=== PATIENT | female | born 1985 | race Caucasian/White ===

== ENCOUNTER 2019-07-29 14:45 | Outpatient (CLI) | payer MEDICAID ==
[~2019-07-29 14:45] MED LIST: LORA-269 PO; NO HOME MEDS
== END 2019-07-29 23:59 | disposition home or self-care (01) ==
LOC: LAB 14:45
PROVIDERS: ATTEND Registered Nurse
DX: Z34.00 Encounter for supervision of normal first pregnancy, unspecified trimester (principal); Z87.891 Personal history of nicotine dependence
CPT/HCPCS: 36415; 84702

== ENCOUNTER 2019-08-03 14:36 | Outpatient (CLI) | payer MEDICAID | END 2019-08-03 23:59 | disposition home or self-care (01) | LOC: LAB 14:36 | PROVIDERS: ATTEND Registered Nurse | DX: Z34.00 Encounter for supervision of normal first pregnancy, unspecified trimester (principal); Z87.891 Personal history of nicotine dependence | CPT/HCPCS: 36415; 84702 ==

== ENCOUNTER 2019-08-12 14:13 | Outpatient (CLI) | payer MEDICAID | END 2019-08-12 23:59 | disposition home or self-care (01) | LOC: LAB 14:13 | PROVIDERS: ATTEND Family Medicine | DX: Z34.00 Encounter for supervision of normal first pregnancy, unspecified trimester (principal) | CPT/HCPCS: 36415; 84702 ==

== ENCOUNTER 2019-08-16 16:57 | Outpatient (CLI) | payer MEDICAID | END 2019-08-16 23:59 | disposition home or self-care (01) | LOC: LAB 16:57 | PROVIDERS: ATTEND Family Medicine | DX: Z34.00 Encounter for supervision of normal first pregnancy, unspecified trimester (principal); Z3A.00 Weeks of gestation of pregnancy not specified | CPT/HCPCS: 36415; 84702 ==

== ENCOUNTER 2019-11-20 19:48 | Emergency (ER) | payer MEDICAID ==
[~2019-11-20] VITALS: Ht 180.3 cm; Wt 71.0 kg
[2019-11-20] MEDS ORDERED: iohexol 300mg/ml 100ml inj. ONE (23:24)
[2019-11-21 00:10] VITALS: BP 106/71
[2019-11-21] MEDS ORDERED: CEPH250T PO (00:22)
[2019-11-21] MEDS ORDERED: NAPR-56 PO (00:23)
== END 2019-11-21 00:34 | disposition home or self-care (01) ==
LOC: ER 19:49
DX: N99.842 Postprocedural seroma of a genitourinary system organ or structure following a genitourinary system procedure (principal); E03.9 Hypothyroidism, unspecified; Z90.710 Acquired absence of both cervix and uterus; Z88.2 Allergy status to sulfonamides; Z88.8 Allergy status to other drugs, medicaments and biological substances; Z79.899 Other long term (current) drug therapy; Y65.8 Other specified misadventures during surgical and medical care
CPT/HCPCS: 72193; 99284; Q9967

== ENCOUNTER 2023-10-07 11:06 | Emergency (ER) | payer MEDICAID ==
[~2023-10-07] VITALS: Ht 177.8 cm; Wt 66.6 kg
[2023-10-07 12:03] LABS: BILIRUBIN,URINE NEGATIVE (Neg); CLARITY,URINE CLOUDY (Clear); COLOR,URINE YELLOW (Yellow); GLUCOSE, URINE NEGATIVE (Neg); KETONES,URINE NEGATIVE (Neg); LEUKOCYTE ESTERASE ,URINE NEGATIVE (Neg); NITRITES, URINE NEGATIVE (Neg); OCCULT BLOOD,URINE SMALL (Neg); PH,URINE 5.5 (4.8-8.0); PROTEIN,URINE TRACE mg/dl (Neg); UROBILINOGEN,URINE 0.2 E.U/dL (0.2-1.0)
[2023-10-07 12:10] LABS: ALANINE AMINOTRANSFERASE 18 U/L (12-78); ALBUMIN 3.8 G/DL (3.4-5.0); ALBUMIN/GLOBULIN RATIO 1.4 (1.1-1.5); ALKALINE PHOSPHATASE 42 IU/L (46-116); AMYLASE 67 U/L (25-115); ANION GAP 9 (8-16); ASPARTATE AMINO TRANSFERASE 15 U/L (10-37); BLOOD UREA NITROGEN 23 MG/DL (7-18); BUN/CREATININE RATIO 30.3 (10.0-20.0); CALCIUM 8.6 MG/DL (8.5-10.1); CHLORIDE 102 MMOL/L (99-107); CREATININE 0.76 MG/DL (0.40-0.90); GLUCOSE 93 MG/DL (70-104); LIPASE 30 U/L (16-77); POTASSIUM 3.6 MMOL/L (3.5-5.1); SODIUM 138 MMOL/L (135-145); TOTAL CARBON DIOXIDE 26.7 MMOL/L (24-32); TOTAL PROTEIN 6.6 G/DL (6.4-8.2); eCRCL 104 ML/MIN; eGFR 85 ML/MIN
[2023-10-07 12:11] LABS: BASOPHILS % (AUTO) 0.4 % (0-1); EOSINOPHILS # (AUTO) 0.1 X10'3 (0-0.9); EOSINOPHILS % (AUTO) 1.5 % (0-6); HEMATOCRIT 41.4 % (35.0-45.0); LYMPHOCYTES # (AUTO) 0.9 X10'3 (1.1-4.8); LYMPHOCYTES % (AUTO) 19.2 % (21-51); MEAN CORPUSCULAR HEMOGLOBIN 31.5 PG (27.0-31.0); MEAN CORPUSCULAR HGB CONC 33.7 g/dL (33.0-36.5); MEAN CORPUSCULAR VOLUME 93.3 FL (78-98); MEAN PLATELET VOLUME 10.7 FL (7.4-10.4); MONOCYTES # (AUTO) 0.3 X10'3 (0-0.9); MONOCYTES % (AUTO) 6.7 % (2-12); NEUTROPHILS # (AUTO) 3.3 X10'3 (1.8-7.7); NEUTROPHILS % (AUTO) 72.2 % (42-75); PLATELET COUNT 159 X10'3 (140-440); RED BLOOD COUNT 4.44 X10'6 (4.20-5.60); RED CELL DISTRIBUTION WIDTH 12.5 % (11.5-14.5); WHITE BLOOD COUNT 4.6 X10'3 (4.5-11.0)
[2023-10-07] MEDS ORDERED: iohexol 300mg/ml 100ml inj. ONE (12:13)
[2023-10-07 12:14] LABS: UA COLLECTION TYPE CLN CATCH MIDSTREAM
[2023-10-07 12:20] LABS: MUCUS STRANDS MANY /LPF (Neg); SQUAMOUS EPITHELIAL CELL,UR MANY /LPF (FEW)
[2023-10-07 12:21] LABS: BACTERIA,URINE 1+ /HPF (Neg); RBC,URINE 20-50 /HPF (0-2); WBC,URINE 0-4 /HPF (0-4)
[2023-10-07] MEDS ORDERED: normal saline 1000ML IV soln IVB ONE (13:35)
[2023-10-07] MEDS ORDERED: ondansetron/PF 4mg/2ml inj IV ONE (13:35)
[2023-10-07] MEDS ORDERED: ketorolac trometh. 30mg/ml inj. IV ONE (13:35)
--- NOTE | 2023-10-07 13:56 | NUR ---
Ultrasound with patient at bedside.
[2023-10-07 15:54] VITALS: BP 118/72; PULSE 60; RESP 18; TEMP 97.7; O2SAT 98
== END 2023-10-07 16:03 | disposition home or self-care (01) ==
LOC: ER 11:06
DX: K59.00 Constipation, unspecified (principal); E86.0 Dehydration
CPT/HCPCS: 36415; 74177; 76700; 80053; 81001; 82150; 83690; 85025; 96361; 96374; 96375; 99285; J1885; J2405; J3490; J7030; Q9967

== ENCOUNTER 2025-08-25 14:11 | Emergency (ER) | payer MEDICAID ==
[~2025-08-25] VITALS: Ht 177.8 cm; Wt 68.2 kg
--- NOTE | 2025-08-25 14:39 | Physician Documentation ---
History of Present Illness Chief Complaint: Abdominal Pain Stated Complaint: ABD PAINS Primary Medical Doctor: [facility] Patient is a 40-year-old female that presents to the emergency department for evaluation of worsening of her abdominal hernias. Patient reports he has a significant history of umbilical hernias and repairs x2. Patient reports that she has recently been working out more. Yesterday she coughed and felt a pop in her abdomen today she is able to observe a visual pouch in the upper left quadrant of her abdomen with significant pain. Denies any other significant past medical history or any other symptoms at this time. took over care of pt @ 1429 Patient states that she has has been regurgitating food since she felt a protrusion in her left upper abdominal area. Areas tender but less notable than when it 1st appeared. Pain with coughing and patient has a history of constipation Day of Onset: Aug 25, 2025 Medication Reconciliation Allergies: Coded Allergies: Sulfa (Sulfonamide Antibiotics) (Verified Allergy, Severe, 02/18/16) metronidazole (Verified Allergy, Severe, 02/18/16) nitrofurantoin (Unverified Allergy, Mild, 10/07/23) Scheduled Lorazepam (Ativan), 1 TAB PO Q12H Omeprazole (Prilosec), 1 CAP PO DAILY Miscellaneous Medications Home Med List (No Home Medications), 1, (Reported) Past Medical History Past Medical History: Inflammatory Bowel Dz, Hernia, Graves' Disease, Hyperthyroidism, C-Diff Past Surgical History: hysterectomy Alcohol Use: None Drug Use: none Lives In: Home Occupation: employed Review of Systems All Other Systems at this time: Reviewed and Negative ROS As stated above in the HPI, otherwise all systems are reviewed and negative. Physical Exam Vital Signs: Temperature: 98.2, Heart Rate: 75, Respiratory Rate: 15, BP: 144/87, Pulse Oximetry: 100, Weight: 68.180 Oxygen Flow Rate: 0 Physical Exam General: Alert, no apparent distress. Gastrointestinal: Soft, tender left upper quadrant nondistended. Bowels sounds present. 4 x 7 cm nildly raised area, tender Extremities: Normal range of motion, no deformity. Neurologic: Oriented x4. Psychiatric: Normal mood and affect. Skin: Normal color, warm and dry. No edema, no ecchymosis. Progress Results/Orders Results/Orders Orders - ANGELES,EDOUARD A STENCILER Urinalysis, Cult If Indicated (08/25/25 14:35) Hcg, Ur Ql (08/25/25 14:35) Cbc/Diff (08/25/25 14:35) BMP (08/25/25 14:35) Lipase (08/25/25 14:35) CMP (08/25/25 14:35) Ct Abdomen Pelvis (08/25/25 14:35) Vital Signs 08/25/25 14:24 Temp 98.2 Pulse 75 Resp 15 B/P (MAP) 144/87 Pulse Ox 100 O2 Flow Rate 0 Medical Decision Making Findings Upon re-evaluation I discussed the patient's nonemergent CT findings indicating duodenal inflammation she then reported to me that she does have a history of IBS.. She was surprised to hear that she does not have a hernia. He then went on to indicate that maybe her symptoms could be related to abdominal cramps that she experienced during the initial incident. He is tender to the exterior and there does not appear to be a mobile reducible mass At this time I am going to treat her for muscle strain and possible gastritis secondary to previously diagnosed IBS Differential Dx:Considerations: Include: AAA, -Complete, - Incomplete, -Inevitable, -Missed, -Threatened, Abruptio placentae, Angina/AR, Aortic dissection, Appendicitis, Bowel obstruction, Cholangitis, Cholelithasis, Constipation, Diverticular disease, Esophageal rupture, Esophagitis, Gastritis/PUD, Gastroenteritis, GI hemorrhage, Hernia, Hepatitis, Inflammatory BD, Ischemic bowel, Ovarian cyst/torsion, Pancreatitis, PID, Porphyria, Trauma, intraabdominal, Urinary obstruction, Urinary tract infection, Urolithiasis, Other Departure Disposition: 01 HOME / SELF CARE / HOMELESS Impression: Primary Impression: Abdominal pain Additional Impression: Intercostal muscle strain Discharge Instructions: Gastritis, Adult, Muscle Cramps and Spasms Referrals: NO PRIMARY CARE PROVIDER (PCP) Prescriptions Omeprazole (Prilosec) 40 Mg Capsule 1 CAP PO DAILY for 30 Days, #30 CAP Prov: CAL LINDA DIESEL RET[employer]IT INSTALLER 08/25/25 Education Educated: Patient Educated regarding: diagnosis Signature Scribe Signature: f Attestation: Scribed for Cal Linda Sales Training Representative by Cal Ceballos NP . 08/25/25 15:30 EDOUARD REYNOSO STENCILER Aug 25, 2025 14:39 CAL LINDA NP Aug 25, 2025 15:30
[2025-08-25 15:10] LABS: MEAN PLATELET VOLUME 10.5 FL (7.4-10.4); RED CELL DISTRIBUTION WIDTH 13.3 % (11.5-14.5)
[2025-08-25 15:24] LABS: CREATININE 0.83 MG/DL (0.40-0.90); TOTAL CARBON DIOXIDE 34.5 MMOL/L (24-32); eCRCL 96 ML/MIN; eGFR 76 ML/MIN
[2025-08-25 15:57] LABS: LEUKOCYTE ESTERASE ,URINE NEGATIVE (Neg); NITRITES, URINE NEGATIVE (Neg); OCCULT BLOOD,URINE NEGATIVE (Neg); URINE HCG NEGATIVE (NEG)
[2025-08-25 16:07] LABS: UA COLLECTION TYPE CLN CATCH MIDSTREAM
[2025-08-25 16:17] LABS: SQUAMOUS EPITHELIAL CELL,UR FEW /LPF (FEW)
[2025-08-25] MEDS ORDERED: iohexol 300mg/ml 100ml inj. ONE (16:17)
--- NOTE | 2025-08-25 17:13 | RADIOLOGY REPORT ---
Exam: CT CT ABDOMEN PELVIS W/ IV CONTRAST History: R/O hernia Comparison Study: CT CT ABDOMEN PELVIS on DOS: 10/07/23 TECHNIQUE: Multidetector CT of the abdomen and pelvis with IV contrast. Axial, coronal and sagittal multiplanar reformats were obtained from the axial data set by the technologist. Radiation Dose Information: CT Dose: CTDI volume is 11.88 mGy. Dose-length product is 173.3 mGy*cm FINDINGS: Bibasilar atelectasis. Partially visualized heart is normal in size. Trace pericardial effusion. 7 mm enhancing hepatic lesion. Liver, spleen, gallbladder, pancreas and adrenal glands unremarkable. Dilatation of the common bile duct up to 0.9 cm with minimal intrahepatic biliary ductal dilatation; unchanged from prior imaging. Mild bilateral pelviectasis. Otherwise, kidneys, ureters and urinary bladder unremarkable. Uterus is not well evaluated. Mild gastric wall thickening. Mild wall thickening of proximal duodenum. Otherwise, the Small bowel loops are unremarkable. Appendix is unremarkable. Decompression of the rectum and sigmoid. Otherwise, Moderate to large amount of fecal material within the remainder of the colon. No evidence of aortic aneurysm or dissection. No significant lymphadenopathy. Minimal body wall edema. No evidence of acute osseous abnormalities. IMPRESSION: Gastric wall thickening with mild wall thickening of the proximal duodenum. Correlate for gastro duodenitis. Nonspecific 7 mm enhancing hepatic lesion. Hepatic protocol CT/ MRI should be considered for further evaluation. Unchanged additional common bile duct up to 0.9 cm with minimal intrahepatic biliary ductal dilatation. No hernia is visualized.
[2025-08-25] MEDS ORDERED: OMEP40CA21 PO (17:27)
[2025-08-25] MEDS: ketorolac trometh 30MG/ML vial 30 MG/ML VIAL IM ONE (17:38)
[2025-08-25] MEDS: mag hydrox/Alum hydrox/simeth 30ml oral suspension PO ONE (17:38)
[2025-08-25] MEDS: LIDOcaine 2% Viscous 15ml cup MM PRN (17:39)
[2025-08-25 17:41] VITALS: BP 114/72; PULSE 64; RESP 18; TEMP 98.2; O2SAT 100
== END 2025-08-25 17:48 | disposition home or self-care (01) ==
LOC: ER 14:13
DX: S29.011A Strain of muscle and tendon of front wall of thorax, initial encounter (principal); R10.12 Left upper quadrant pain; R05.9 Cough, unspecified; Z88.1 Allergy status to other antibiotic agents; Z88.2 Allergy status to sulfonamides; Z90.710 Acquired absence of both cervix and uterus; X58.XXXA Exposure to other specified factors, initial encounter; Y93.89 Activity, other specified; Y92.89 Other specified places as the place of occurrence of the external cause; Y99.8 Other external cause status
CPT/HCPCS: 36415; 74177; 80053; 81001; 81025; 83690; 85025; 99285; Q9967